=== PATIENT | female | born 1975 | race Asian ===

== ENCOUNTER 2018-02-27 12:20 | Emergency (ER) | payer OTHER ==
[~2018-02-27] VITALS: Ht 160 cm; Wt 59.0 kg
[2018-02-27 12:29] VITALS: BP 134/89; Ht 160 cm; Wt 59.0 kg
== END 2018-02-27 14:20 | disposition home or self-care (01) ==
LOC: ED 12:20
DX: S93.402A Sprain of unspecified ligament of left ankle, initial encounter (principal); S80.02XA Contusion of left knee, initial encounter; S80.01XA Contusion of right knee, initial encounter; W01.0XXA Fall on same level from slipping, tripping and stumbling without subsequent striking against object, initial encounter; Y93.89 Activity, other specified; Y92.89 Other specified places as the place of occurrence of the external cause; Y99.8 Other external cause status
CPT/HCPCS: 90715

== ENCOUNTER 2020-05-05 00:41 | Emergency (ER) | payer OTHER ==
[~2020-05-05] VITALS: Ht 160 cm; Wt 59.0 kg
[2020-05-05 00:45] VITALS: Ht 160 cm; Wt 59.0 kg
[2020-05-05 02:32] VITALS: BP 139/83
== END 2020-05-05 02:32 | disposition home or self-care (01) ==
LOC: ED 00:41
DX: S09.90XA Unspecified injury of head, initial encounter (principal); M25.422 Effusion, left elbow; V19.9XXA Pedal cyclist (driver) (passenger) injured in unspecified traffic accident, initial encounter; Y93.I9 Activity, other involving external motion; Y92.413 State road as the place of occurrence of the external cause; Y99.8 Other external cause status